=== PATIENT | female | born 1990 ===

== ENCOUNTER 2017-07-13 08:58 | Outpatient (CLI) | payer BC ==
--- NOTE | 2017-07-13 09:39 | XRay Report ---
XRAY RIGHT SHOULDER THREE VIEWS: 07/13/17 08:58:00 CLINICAL: Right shoulder pain. FINDINGS: Normal glenohumeral alignment. Mild irregularity and eburnation of the glenoid rim Normal AC joint. No fracture or dislocation. No bone lesion. Normal soft tissues. IMPRESSION: Mild glenohumeral joint arthritis.
== END 2017-07-13 08:59 | disposition home or self-care (01) ==
LOC: SPVIMAG 08:58
PROVIDERS: ATTEND Orthopaedic Surgery
DX: M19.011 Primary osteoarthritis, right shoulder (principal)